=== PATIENT | male | born 1950 | race Caucasian/White ===

== ENCOUNTER 2021-01-05 05:23 | Day surgery (SDC) | payer MEDICARE, BC ==
[2020-12-29 15:56] LABS: BASOPHILS # (AUTO) 0.1 X10'3 (0-0.2); BASOPHILS % (AUTO) 0.8 % (0-1); EOSINOPHILS # (AUTO) 0.2 X10'3 (0-0.9); EOSINOPHILS % (AUTO) 2.6 % (0-6); LYMPHOCYTES # (AUTO) 2.3 X10'3 (1.1-4.8); LYMPHOCYTES % (AUTO) 37.2 % (21-51); MEAN CORPUSCULAR HEMOGLOBIN 31.1 PG (27.0-31.0); MEAN CORPUSCULAR HGB CONC 33.2 g/dL (33.0-36.5); MEAN CORPUSCULAR VOLUME 93.7 FL (78-98); MONOCYTES # (AUTO) 0.7 X10'3 (0-0.9); MONOCYTES % (AUTO) 11.6 % (2-12); NEUTROPHILS # (AUTO) 2.9 X10'3 (1.8-7.7); NEUTROPHILS % (AUTO) 47.8 % (42-75); PRE OP HEMATOCRIT 42.7 % (42.0-52.0); PRE OP HEMOGLOBIN 14.2 g/dL (14.0-17.9); PRE OP PLATELET COUNT 308 X10'3 (140-440); RED BLOOD COUNT 4.55 X10'6 (4.70-6.10); RED CELL DISTRIBUTION WIDTH 14.4 % (11.5-14.5)
[2020-12-29 16:10] LABS: ALBUMIN 3.8 G/DL (3.4-5.0); ALKALINE PHOSPHATASE 76 IU/L (46-116); BLOOD UREA NITROGEN 19 MG/DL (7-18); BUN/CREATININE RATIO 15.8 (5.4-32.0); CALCIUM 9.3 MG/DL (8.5-10.1); CHLORIDE 105 MMOL/L (99-107); PRE OP ALT 41 U/L (30-65); PRE OP ANION GAP 12 (8-16); PRE OP AST 24 U/L (10-37); PRE OP BILIRUB, TOTAL 0.4 MG/DL (0.0-1.0); PRE OP GLUCOSE 89 MG/DL (70-104); PRE OP POTASSIUM 4.1 MMOL/L (3.4-5.1); PRE OP SODIUM 141 MMOL/L (135-145); TOTAL CARBON DIOXIDE 24.1 MMOL/L (24-32); TOTAL PROTEIN 7.6 G/DL (6.4-8.2); eGFR 60 ML/MIN
[~2021-01-05] VITALS: Ht 182.9 cm; Wt 91.4 kg
[2021-01-05] VITALS (8 sets, daily range): BP systolic 93–127; BP diastolic 61–77
[~2021-01-05 05:23] MED LIST: ASPI-109 PO; ATOR40TA72 PO; FLO0.4C PO; LOSA50TA64 PO; [UNRECOGNIZED DRUG - OTHER] PO; ringers solution, lacted 1,000 ML IV SCH
[2021-01-05] MEDS ORDERED: clindamycin-Cleocin 900mg/D5W 50 ML IV ONE (05:30)
[2021-01-05] MEDS ORDERED: famotidine 20mg tablet PO ONE (05:30)
[2021-01-05] MEDS ORDERED: BUPIVAcaine 0.5% inj/PF 30 ML ONE (06:45)
[2021-01-05] MEDS ORDERED: LIDOcaine 1% 30ml preserv. free vial ONE (06:45)
[2021-01-05] MEDS ORDERED: BUPIVAcaine/PF 2.5mg/ml (0.25%) 10ml vial ONE (06:56)
[2021-01-05] MEDS ORDERED: BUPIVACAINE liposomal/PF 13.3 MG/ML vial IM ONE (06:56)
[2021-01-05] MEDS ORDERED: fentaNYL/PF 50MCG/1 ML 2ML syringe ONE (07:17)
[2021-01-05] MEDS ORDERED: propofol inj 20 ML IV ONE (07:20)
[2021-01-05] MEDS ORDERED: LIDOcaine 2% (20mg/ml) 5ml vial ONE (07:20)
[2021-01-05] MEDS ORDERED: ringers solution, lacted 1,000 ML IV SCH (07:30)
[2021-01-05] MEDS ORDERED: HYDROmorphone/PF 0.2 MG/ML SYRINGE IV PRN (07:30)
[2021-01-05] MEDS ORDERED: morphine 2 MG/ML inj. syringe IV PRN (07:30)
[2021-01-05] MEDS ORDERED: ondansetron/PF 4mg/2ml inj IV PRN (07:30)
[2021-01-05] MEDS ORDERED: sevoflurane 250ml liquid IH ONE (07:35)
[2021-01-05] MEDS ORDERED: ondansetron/PF 4mg/2ml inj ONE (08:12)
[2021-01-05] MEDS ORDERED: dexamethasone sod phosphate 4mg/ml inj. ONE (08:12)
[2021-01-05] MEDS ORDERED: neostigmine methylsulfate 1 MG/ML 10ml vial ONE (08:12)
[2021-01-05] MEDS ORDERED: rocuronium 10mg/ml inj IV ONE (08:12)
[2021-01-05] MEDS ORDERED: glycopyrrolate 0.2mg/ml inj ONE (08:12)
[2021-01-05] MEDS ORDERED: acetaminophen 1,000mg/100ml IV 100 ML IV ONE (08:13)
[2021-01-05] MEDS ORDERED: ePHEDrine 50MG/ML INJ. ONE (08:35)
--- NOTE | 2021-01-05 08:50 | NUR ---
Received from OR via , accompanied by Anesthesiologist and report given by Anesthesiolgist. PATIENT A&OX4, DENIES PAIN, V/S WNL, SCD ON , PIV 20G RUE, LAPS SITES W/ BANDAIDS CLOSED CDI TO ABDOMEN.
[2021-01-05] MEDS ORDERED: oxyCODONE/APAP 5-325mg tablet PO PRN (09:00)
--- NOTE | 2021-01-05 09:50 | NUR ---
PATIENT A&OX4, DENIES PAIN, V/S WNL, SCD OFF , PIV 20G RUE D/C, BANDAIDS TO LAPS SITES OF ABDOMEN CLOSED CDI I HAVE REVIEWED D/C INSTRUCTIONS WITH PATIENT AND THEY HAVE VERBALIZED UNDERSTANDING OF INSTRUCTIONS. PATIENT D/C HOME WITH ALL BELONGINGS AND FAMILY GAVE TRANSPORT
== END 2021-01-05 09:50 | disposition home or self-care (01) ==
LOC: PAS 05:23
PROVIDERS: ATTEND Surgery
DX: K43.9 Ventral hernia without obstruction or gangrene (principal); I10 Essential (primary) hypertension; M19.90 Unspecified osteoarthritis, unspecified site; E78.5 Hyperlipidemia, unspecified; Z88.0 Allergy status to penicillin; Z79.82 Long term (current) use of aspirin; Z79.899 Other long term (current) drug therapy; Z86.73 Personal history of transient ischemic attack (TIA), and cerebral infarction without residual deficits; Z98.890 Other specified postprocedural states; Z85.46 Personal history of malignant neoplasm of prostate; Z72.89 Other problems related to lifestyle; Z87.891 Personal history of nicotine dependence; Z20.822 Contact with and (suspected) exposure to COVID-19; Z80.0 Family history of malignant neoplasm of digestive organs
CPT/HCPCS: 36415; 49652; 80053; 82948; 85025; 93005; C1781; C9290; J0131; J1100; J2001; J2405; J2704; J2710; J3010; J3490; U0003; U0005; Z7506; Z7508; Z7512; A4215; A4618; J7120